=== PATIENT | male | born 1940 | race Asian ===

== ENCOUNTER → 2017-01-13 | Outpatient (CLI) | payer MEDICARE, OTHER ==
[~2017-01-13] MED LIST: ACET-66 PO; AMIO200 PO; ASPI-891 PO; CACARB500 PO; CLON0.1T13 PO; DSS100 PO; FAMO-136 PO; FIORIT PO; GABA400C PO; GLIP10 PO; LEVE500T53 PO; LISI-662 PO; METF500T4 PO; METO50 PO; PIOG45TA4 PO; SENN-161 PO; SERT50TA12 PO; SIMV-260 PO; TAMS0.4C32 PO
== END | disposition home or self-care (01) ==
LOC: RADPV 12:56
PROVIDERS: ATTEND Legal Medicine
DX: R91.8 Other nonspecific abnormal finding of lung field (principal); I70.0 Atherosclerosis of aorta; M47.814 Spondylosis without myelopathy or radiculopathy, thoracic region
CPT/HCPCS: 71020

== ENCOUNTER → 2017-06-04 | Outpatient (CLI) | payer MEDICARE, OTHER | END | disposition home or self-care (01) | LOC: RADPV 12:29 | PROVIDERS: ATTEND Legal Medicine | DX: J84.10 Pulmonary fibrosis, unspecified (principal); J44.9 Chronic obstructive pulmonary disease, unspecified; I70.0 Atherosclerosis of aorta | CPT/HCPCS: 71046 ==

== ENCOUNTER 2018-02-18 13:28 | Emergency (ER) | payer MEDICARE, OTHER ==
[~2018-02-18] VITALS: Ht 172.7 cm; Wt 68.2 kg
[~2018-02-18 13:28] MED LIST changes: +METF-960 PO; -METF500T4 PO
[2018-02-18 13:39] LABS: GLUCOSE,POINT OF CARE 229 MG/DL (70-110)
[2018-02-18] MEDS ORDERED: LIDOCAINE 4% 50 ML SOLUTION ONE (15:09)
[2018-02-18 15:23] LABS: GLUCOSE,POINT OF CARE 255 MG/DL (70-110)
[2018-02-18 16:53] VITALS: BP 115/95
== END 2018-02-18 16:55 | disposition home or self-care (01) ==
LOC: EMS 13:29
DX: S02.2XXA Fracture of nasal bones, initial encounter for closed fracture (principal); S01.21XA Laceration without foreign body of nose, initial encounter; J34.2 Deviated nasal septum; M25.422 Effusion, left elbow; E11.9 Type 2 diabetes mellitus without complications; I10 Essential (primary) hypertension; F32.9 Major depressive disorder, single episode, unspecified; Z79.899 Other long term (current) drug therapy; Z79.82 Long term (current) use of aspirin; Z79.84 Long term (current) use of oral hypoglycemic drugs; W01.0XXA Fall on same level from slipping, tripping and stumbling without subsequent striking against object, initial encounter; Y93.01 Activity, walking, marching and hiking; Y92.89 Other specified places as the place of occurrence of the external cause; Y99.8 Other external cause status
CPT/HCPCS: 12011; 70450; 70486; 72125

== ENCOUNTER → 2018-10-15 | Outpatient (CLI) | payer MEDICARE, OTHER | END | disposition home or self-care (01) | LOC: RADMN 16:05 | PROVIDERS: ATTEND Legal Medicine | DX: S22.42XA Multiple fractures of ribs, left side, initial encounter for closed fracture (principal); X58.XXXA Exposure to other specified factors, initial encounter; Y93.89 Activity, other specified; Y92.89 Other specified places as the place of occurrence of the external cause; Y99.8 Other external cause status | CPT/HCPCS: 71101 ==

== ENCOUNTER → 2018-10-22 | Outpatient (CLI) | payer MEDICARE, OTHER | END | disposition home or self-care (01) | LOC: RADPV 11:22 | PROVIDERS: ATTEND Legal Medicine | DX: S22.32XD Fracture of one rib, left side, subsequent encounter for fracture with routine healing (principal); X58.XXXD Exposure to other specified factors, subsequent encounter | CPT/HCPCS: 71101 ==

== ENCOUNTER → 2019-02-01 | Outpatient (CLI) | payer MEDICARE, OTHER ==
[~2019-02-01] MED LIST changes: +TAMS-13 PO; -TAMS0.4C32 PO
== END | disposition home or self-care (01) ==
LOC: RADPV 12:21
PROVIDERS: ATTEND Legal Medicine
DX: J84.10 Pulmonary fibrosis, unspecified (principal); J47.9 Bronchiectasis, uncomplicated; I70.0 Atherosclerosis of aorta; E11.9 Type 2 diabetes mellitus without complications; Z90.89 Acquired absence of other organs

== ENCOUNTER → 2019-02-22 | Outpatient (CLI) | payer MEDICARE, OTHER | END | disposition home or self-care (01) | LOC: RADPV 09:38 | PROVIDERS: ATTEND Internal Medicine Cardiovascular Disease | DX: I35.8 Other nonrheumatic aortic valve disorders (principal); I51.9 Heart disease, unspecified; I25.10 Atherosclerotic heart disease of native coronary artery without angina pectoris | CPT/HCPCS: 93306 ==

== ENCOUNTER → 2021-03-05 | Outpatient (CLI) | payer MEDICARE, OTHER ==
[~2021-03-05] MED LIST changes: -ASPI-891 PO; +ASPI325T87 PO; -CACARB500 PO; +CALC500T37 PO; +LEVE500T20 PO; -LEVE500T53 PO; -LISI-662 PO; +LISI-894 PO; +METF-1211 PO; -METF-960 PO; +SERT-158 PO; -SERT50TA12 PO
== END | disposition home or self-care (01) ==
LOC: RADMN 12:45
PROVIDERS: ATTEND Legal Medicine
DX: G40.89 Other seizures (principal); G93.89 Other specified disorders of brain; I67.82 Cerebral ischemia; R55 Syncope and collapse
CPT/HCPCS: 70551